=== PATIENT | male | born 2000 | race Caucasian/White ===

== ENCOUNTER 2022-04-20 18:53 | Emergency (ER) | payer BC ==
[~2022-04-20] VITALS: Ht 177.8 cm; Wt 125.0 kg
[~2022-04-20 18:53] MED LIST: LORTAB 5/500 501 TAB PO; NO HOME MEDICATIONS
[2022-04-20 19:01] VITALS: TEMP 98
[2022-04-20 19:44] LABS: BASO # 0.1 K/mm3 (0.0-0.2); BASO % 0.7 % (0.0-2.0); EOS # 0.3 K/mm3 (0.0-0.7); EOS % 2.9 % (0.0-4.0); GRAN # 6.6 K/mm3 (1.4-6.5); GRAN % 65.5 % (42.2-75.2); HEMATOCRIT 44.2 % (42.0-52.0); HEMOGLOBIN 14.4 g/dl (13.5-18.0); LYMPH # 2.5 K/mm3 (1.2-3.4); LYMPH % 24.7 % (20.0-51.0); MEAN CELL VOLUME 81 fl (80.0-100.0); MEAN CORPUSCULAR HEMOGLOBIN 26 pg (27-31); MEAN CORPUSCULAR HGB CONC 33 g/dl (33.0-37.0); MEAN PLATELET VOLUME 10.1 fl (7.4-10.4); MONO # 0.6 K/mm3 (0.1-0.6); MONO % 5.8 % (1.7-9.3); PLATELET COUNT 387 K/mm3 (130-400); RED BLOOD COUNT 5.46 M/mm3 (4.20-5.60); REDCELL DISTRIBUTION WIDTH-CV 13.5 % (11.5-14.5)
[2022-04-20 20:01] LABS: BILIRUBIN,TOTAL 0.4 mg/dL (0.2-1.2); CALCIUM 9.6 mg/dL (8.4-10.2); CREATININE, serum 1.12 mg/dL (0.72-1.25); POTASSIUM 3.9 mmol/L (3.5-4.5); TOTAL PROTEIN 7.7 gm/dL (6.2-8.1)
[2022-04-20 21:15] VITALS: BP 134/84; PULSE 72
== END 2022-04-20 21:15 | disposition home or self-care (01) ==
LOC: COL.ER 18:53
PROVIDERS: Nurse Practitioner
DX: H53.9 Unspecified visual disturbance (principal); R51.9 Headache, unspecified; Z28.311 Partially vaccinated for COVID-19